=== PATIENT | female | born 1960 | race Caucasian/White ===

== ENCOUNTER 2017-10-18 06:56 | Day surgery (SDC) | payer BC ==
[~2017-10-18 06:56] MED LIST: Acetaminophen TAB* 325 MG PO PRN; Buffered Lidocaine 0.9% SYRIN* 5 ML/SYR SYRINGE INTRADERM ONE
[2017-10-18] MEDS ORDERED: Midazolam* 1 MG/ML 2 ML VIAL (2 MG) ONE (08:43)
[2017-10-18 09:29] VITALS: BP 114/60
--- NOTE | 2017-10-18 11:04 | OP ---
OPERATIVE NOTE: DATE OF OPERATION: 10/18/17 DATE OF : 58 SURGEON: Luis Perez M.D. PREOPERATIVE DIAGNOSIS: Cataract right eye. POSTOPERATIVE DIAGNOSIS: Cataract right eye. OPERATIVE PROCEDURE: Extracapsular cataract extraction with intraocular lens implant right eye. PROCEDURE: The patient was brought to the operating room after being given 1/2% Alcaine with epineph rine drops in the preoperative area. The eye was prepped and draped in the usual sterile fashion. S terile drape and eyelid speculum were placed. Again, topical 1/2% Alcaine with epinephrine was given . A paracentesis incision was made at the 9 o'clock position with the No.75 blade. Clear cornea inc ision 2.2 x 2.2-mm was created at the 12 o'clock position starting at the anterior limbus using the 2 .2-mm keratome. The anterior chamber was irrigated with 0.4 mL of 1% non-preservative intracameral l idocaine and filled with DisCoVisc. A capsulorrhexis was completed using the cystotome and the Utrat a forceps. Hydrodissection was performed with balanced salt solution. The lens nucleus was removed w ith the Phacoemulsification handpiece without incident. Cortex was removed with the irrigation-aspir ation handpiece. The capsular bag was re-inflated using DisCoVisc and an [id number] implant was inser karla with the shooter. The irrigation-aspiration handpiece was used to remove all residual DisCoVisc. The eye was refilled with balanced salt solution and the wound checked and found to be watertight. Topical Maxitrol drops were given. [id number]/[facility] #: [id number]
[2017-10-18] MEDS ORDERED: Ketorolac 0.5% OPHTH (NF) 0.5 % 5 ML BTL ONE (13:04)
[2017-10-18] MEDS ORDERED: Cyclopentolate 1% OPTH.SOL* 2 ML BTL ONE (13:04)
[2017-10-18] MEDS ORDERED: Povidone Iodine 5% OPTH* 30 ML BTL ONE (13:04)
[2017-10-18] MEDS ORDERED: acetaZOLAMIDE TAB* 250 MG ONE (13:04)
[2017-10-18] MEDS ORDERED: Lidocaine 1% MPF* 2 ML VIAL ONE (13:04)
[2017-10-18] MEDS ORDERED: Phenylephrine 2.5% OPTH.SOL* 2 ML BTL ONE (13:04)
[2017-10-18] MEDS ORDERED: Lidocaine 2% EPI 1:200000 MPF* 20 ML VIAL ONE (13:04)
[2017-10-18] MEDS ORDERED: Neomycin/Polymy/Dex OPTH.SUSP* MAXITROL 0.1% 5 ML ONE (13:04)
[2017-10-18] MEDS ORDERED: Proparacaine 0.5% OPHTH.SOL* 15 ML BTL ONE (13:04)
== END 2017-10-18 09:29 | disposition home or self-care (01) ==
LOC: OREAST 06:56
PROVIDERS: ATTEND Specialist
DX: H25.811 Combined forms of age-related cataract, right eye (principal); E03.9 Hypothyroidism, unspecified; F41.9 Anxiety disorder, unspecified; Z87.891 Personal history of nicotine dependence
CPT/HCPCS: A9270-GY; J2250; V2632

== ENCOUNTER 2017-10-25 06:39 | Day surgery (SDC) | payer BC ==
[2017-10-25] MEDS ORDERED: Midazolam* 1 MG/ML 2 ML VIAL (2 MG) ONE (08:00)
[2017-10-25 08:39] VITALS: BP 126/38
--- NOTE | 2017-10-25 08:56 | OP ---
DATE OF OPERATION: 10/25/17 [facility] DATE OF : 58 SURGEON: Luis Perez M.D. ANESTHESIA: Local with MAC. PREOPERATIVE DIAGNOSIS: Cataract, left eye. POSTOPERATIVE DIAGNOSIS: Cataract, left eye. OPERATIVE PROCEDURE: Extracapsular cataract extraction with intraocular lens implant, left eye. COMPLICATIONS: None. DESCRIPTION OF PROCEDURE: The patient was brought to the operating room after being given 1/2% Alcaine with epinephrine drops in the preoperative area. The eye was prepped and draped in the usual sterile fashion. Sterile drape and eyelid speculum were placed. Again, topical 1/2% Alcaine with epinephrine was given. A paracentesis incision was made at the 3 o'clock position with the No.75 blade. Clear cornea incision 2.2 x 2.2-mm was created at the 6 o'clock position starting at the anterior limbus using the 2.2-mm keratome. The anterior chamber was irrigated with 0.4 mL of 1% non-preservative intracameral lidocaine and filled with DisCoVisc. A capsulorrhexis was completed using the cystotome and the Utrata forceps. Hydrodissection was performed with balanced salt solution. The lens nucleus was removed with the Phacoemulsification handpiece without incident. Cortex was removed with the irrigation-aspiration handpiece. The capsular bag was re-inflated using DisCoVisc and an [id number] 27.5 implant was inserted with the shooter. The irrigation-aspiration handpiece was used to remove all residual DisCoVisc. The eye was refilled with balanced salt solution and the wound checked and found to be watertight. Topical Maxitrol drops were given. [id number]/[facility] #: [id number] [facility]
[2017-10-25] MEDS ORDERED: Ketorolac 0.5% OPHTH (NF) 0.5 % 5 ML BTL ONE (12:48)
[2017-10-25] MEDS ORDERED: acetaZOLAMIDE TAB* 250 MG ONE (12:48)
[2017-10-25] MEDS ORDERED: Cyclopentolate 1% OPTH.SOL* 2 ML BTL ONE (12:48)
[2017-10-25] MEDS ORDERED: Povidone Iodine 5% OPTH* 30 ML BTL ONE (12:48)
[2017-10-25] MEDS ORDERED: Lidocaine 1% MPF* 2 ML VIAL ONE (12:48)
[2017-10-25] MEDS ORDERED: Neomycin/Polymy/Dex OPTH.SUSP* MAXITROL 0.1% 5 ML ONE (12:48)
[2017-10-25] MEDS ORDERED: Phenylephrine 2.5% OPTH.SOL* 2 ML BTL ONE (12:48)
[2017-10-25] MEDS ORDERED: Lidocaine 2% EPI 1:200000 MPF* 20 ML VIAL ONE (12:48)
[2017-10-25] MEDS ORDERED: Proparacaine 0.5% OPHTH.SOL* 15 ML BTL ONE (12:48)
== END 2017-10-25 08:41 | disposition home or self-care (01) ==
LOC: OREAST 06:39
PROVIDERS: ATTEND Specialist
DX: H25.812 Combined forms of age-related cataract, left eye (principal); E03.9 Hypothyroidism, unspecified; Z87.891 Personal history of nicotine dependence; F41.9 Anxiety disorder, unspecified
CPT/HCPCS: A9270-GY; J2250; V2632

== ENCOUNTER 2018-07-06 11:14 | Inpatient (IN) | payer BC ==
--- NOTE | 2018-07-06 11:59 | ED ---
Psychiatric Complaint - HPI Summary HPI Summary: Patient is a 57 y/o F w/ c/o SI. Patient is very tearful and states she has thoughts of suicide with a plan, which is to run her car into an object. Patient notes long Hx of Sx but reports experiencing an exacerbation in the past five days. She states that she is hearing a voice and that the voice is telling her she is, "a bad person, a bad mother, and worthless". She denies Hx of SA and HI. Patient reports Hx of anxiety and depression. She states she has been prescribed medication for these conditions and she has been taking medication. Patient denies prior admission to psych facility. Hx of HTN and diabetes denied. On triage, pain is denied, nothing is noted to aggravate/ alleviate Sx. - History Of Current Complaint Chief Complaint: [facility]ental[facility] Time Seen by Provider: 07/06/18 11:28 Hx Obtained From: Patient Onset/Duration: Lasting Weeks - patient reports long Hx of Sx, Still Present, Worse Since - 5 days ago patient reports exacerbation of Sx Timing: Constant Severity Currently: None Character: Depressed Aggravating Factor(s): Nothing Alleviating Factor(s): Nothing Associated Signs And Symptoms: Positive: Hallucinating - hearing voice Has Suicidal: Reports: Thoughts, With A Plan - run car into an object. Denies: Has Prior Attempt(s) - NEGATIVE Has Homicidal: Denies: Thoughts - NEGATIVE - Allergies/Home Medications Allergies/Adverse Reactions: Allergies Allergy/AdvReac Type Severity Reaction Status Date / Time No Known Drug Allergies Allergy Leg Cramps Verified 07/07/18 17:06 Hayfever Allergy Intermediate Headaches; Uncoded 07/07/18 01:45 Nasal Congestion PMH/Surg Hx/FS Hx/Imm Hx Endocrine/Hematology History: Reports: Hx Thyroid Disease Denies: Hx Diabetes Cardiovascular History: Denies: Hx Hypertension Respiratory History: Reports: Hx Seasonal Allergies, Hx Sleep Apnea Denies: Hx Asthma, Hx Chronic Obstructive Pulmonary Disease (COPD) GI History: Denies: Hx Ulcer History: Reports: Hx Kidney Stones Musculoskeletal History: Reports: Hx Arthritis Denies: Hx Osteoporosis Sensory History: Reports: Hx Cataracts - both, Hx Contacts or Glasses, Hx Hearing Aid, Hx Hearing Problem Opthamlomology History: Reports: Hx Cataracts - both, Hx Contacts or Glasses Psychiatric History: Reports: Hx Anxiety, Hx Depression - Cancer History Hx Chemotherapy: No Hx Radiation Therapy: No - Surgical History Surgery Procedure, Year, and Place: tubal ligation; Tonsillectomy Hx Anesthesia Reactions: No Infectious Disease History: No Infectious Disease History: Denies: Hx Hepatitis, Hx Human Immunodeficiency Virus (HIV), History Other Infectious Disease, Traveled Outside the [place] in Last 30 Days - Family History Known Family History: Positive: Cardiac Disease - Social History Alcohol Use: None Substance Use Type: Reports: None Smoking Status (MU): Never Smoked Tobacco Amount Used/How Often: smoked for 20 years approx less than 1ppd Review of Systems Negative: Fever - on vitals, temp is 99.2 F Positive: Depressed - SI with plan, Other - NEGATIVE: prior SA, HI All Other Systems Reviewed And Are Negative: Yes Physical Exam - Summary Physical Exam Summary: GENERAL: Patient is a well developed and nourished female who is lying comfortable in the stretcher. Patient is not in any acute respiratory distress. HEAD AND FACE: Normocephalic EYES: PERRLA, EOMI x 2. EARS: Hearing grossly intact. MOUTH: Oropharynx within normal limits. NECK: Supple, trachea is midline, no adenopathy, no JVD, no carotid bruit. CHEST: Symmetric, no tenderness at palpation LUNGS: Clear to auscultation bilaterally. No wheezing or crackles. CVS: Regular rate and rhythm, S1 and S2 present, no murmurs or gallops appreciated. ABDOMEN: Soft, non-tender. Bowel sounds are normal. No abdominal abnormal pulsations. EXTREMITIES: Full ROM in all major joints, no edema, no cyanosis or clubbing. NEURO: Alert and oriented x 3. No acute neurological deficits. Speech is normal and follows commands. SKIN: Dry and warm PSYCH: patient is tearful, sad affect, + SI, - HI, + auditory hallucination Triage Information Reviewed: Yes Vital Signs On Initial Exam: Initial Vitals Temp Pulse Resp BP Pulse Ox 99.2 F 77 16 173/90 98 07/06/18 11:23 07/06/18 11:23 07/06/18 11:23 07/06/18 11:23 07/06/18 11:23 Vital Signs Reviewed: Yes Diagnostics - Vital Signs Vital Signs Temp Pulse Resp BP Pulse Ox 07/06/18 11:23 99.2 F 77 16 173/90 98 - Laboratory Result Diagrams: 07/06/18 11:47 07/06/18 11:47 Lab Statement: Any lab studies that have been ordered have been reviewed, and results considered in the medical decision making process. Re-Evaluation - Re-Evaluation First Eval Re-Evaluation Time: 12:20 Comment: Patient moved to flex unit. Course/Dx - Course Assessment/Plan: Patient is a 57 y/o F w/ c/o SI. Patient is very tearful and states she has thoughts of suicide with a plan, which is to run her car into an object. Patient notes long Hx of Sx but reports experiencing an exacerbation in the past five days. She states that she is hearing a voice and that the voice is telling her she is, "a bad person, a bad mother, and worthless". She denies Hx of SA and HI. Patient reports Hx of anxiety and depression. She states she has been prescribed medication for these conditions and she has been taking medication. Patient denies prior admission to psych facility. Physical exam findings show patient is tearful, has sad affect, + SI, - HI, + auditory hallucination. Patient was moved to flex unit at 1220. Patient's case was reviewed with Dr. Guy at 20:54, she will be admitted with diagnosis of depression. - Differential Dx/Clinical Impression Provider Diagnosis: Depression - Physician Notifications Discussed Care Of Patient With: Rocky Guy Time Discussed With Above Provider: 20:54 Instructed by Provider To: Other - Dr. Guy and Dr. Deal reviewed patient's case, she will be admitted to [facility] [place], accepted by Dr. Guy. Discharge - Sign-Out/Discharge Documenting (check all that apply): Patient Departure - admit - Discharge Plan Condition: Good Disposition: PSYCHIATRIC FACILITY[place] [place] - Billing Disposition and Condition Condition: GOOD Disposition: Psychiatric Facility [facility] [place] - Attestation Statements Document Initiated by Scribe: Yes Documenting Scribe: Diaz Ballesteros Provider For Whom Rom is Documenting (Include Credential): Yeyo Deal M.D. Scribe Attestation: Diaz Moss, scribed for Yeyo Deal M.D. on 07/07/18 at 8747. Scribe Documentation Reviewed: Yes Provider Attestation: The documentation as recorded by the Diaz carrasco accurately reflects the service I personally performed and the decisions made by me, Yeyo Deal M.D.
[2018-07-06 12:09] LABS: ABS Basophils 0.1 10^3/ul (0-0.2); ABS Eosinophils 0.3 10^3/ul (0-0.6); ABS Lymphocytes 2.6 10^3/ul (1.0-4.8); ABS Monocytes 0.4 10^3/ul (0-0.8); ABS Neutrophils 4.9 10^3/ul (1.5-7.7); ABS Nucleated RBC 0 10^3/ul; Eosinophil % 3.6 % (0-6); Hematocrit 42 % (35-47); Hemoglobin 14.6 g/dl (12.0-16.0); Lymphocyte % 31.3 % (25-47); Mean Corpuscular HGB Conc 35 g/dl (31-36); Mean Corpuscular Hemoglobin 33 pg (27-31); Mean Corpuscular Volume 94 fL (80-97); Mean Platelet Volume 9.6 um3 (7.4-10.4); Nucleated Red Blood Cells % 0.1; Platelet Count 293 10^3/ul (150-450); Red Blood Count 4.47 10^6/ul (4.00-5.40); Red Cell Distribution Width 13 % (10.5-15); White Blood Count 8.2 10^3/ul (3.5-10.8)
[2018-07-06 12:21] LABS: EGFR Non-African American 73.7 (>60)
[2018-07-06 12:33] LABS: Urine Appearance Clear; Urine Blood 2+ (Negative); Urine Color Yellow; Urine Ketones Negative (Negative); Urine Protein Negative (Negative); Urine Red Blood Cell 3+(>10/hpf) (Absent); Urine Specific Gravity 1.011 (1.010-1.030); Urine Urobilinogen Negative (Negative); Urine White Blood Cell Absent (Absent)
[2018-07-06] MEDS ORDERED: Acetaminophen TAB* 325 MG PO ONE (18:52)
[2018-07-07] MEDS ORDERED: Levothyroxine TAB* 100 MCG TAB PO SCH (06:00)
[2018-07-07] MEDS ORDERED: PARoxetine HCL TAB* 40 MG PO SCH (09:00)
[2018-07-07] MEDS ORDERED: Levothyroxine TAB* 100 MCG TAB ONE (10:04)
[2018-07-07] MEDS ORDERED: PARoxetine HCL TAB* 40 MG ONE (10:04)
[2018-07-07] MEDS: Calcium/Vitamin D TAB 250/125* TAB PO SCH (10:57)
[2018-07-07] MEDS ORDERED: hydrOXYzine HCL TAB* 50 MG PO PRN ×2 (11:40)
[2018-07-07] MEDS: Levothyroxine TAB* 100 MCG TAB PO SCH (12:12)
[2018-07-07] MEDS: PARoxetine HCL TAB* 40 MG PO SCH (12:12)
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
[2018-07-07] MEDS: QUEtiapine TAB* 25 MG PO SCH (21:43)
[2018-07-08] MEDS: Levothyroxine TAB* 100 MCG TAB PO SCH (07:59)
[2018-07-08] MEDS: PARoxetine HCL TAB* 40 MG PO SCH (08:00)
[2018-07-08] MEDS: Calcium/Vitamin D TAB 250/125* TAB PO SCH (08:00)
[2018-07-08] MEDS: QUEtiapine TAB* 25 MG PO SCH (21:36)
[2018-07-09] MEDS: Levothyroxine TAB* 100 MCG TAB PO SCH (07:40)
[2018-07-09] MEDS: Calcium/Vitamin D TAB 250/125* TAB PO SCH (09:17)
[2018-07-09] MEDS: PARoxetine HCL TAB* 40 MG PO SCH (09:18)
--- NOTE | 2018-07-09 11:36 | PN ---
MHU: Group Therapy Note - Service Type Service Type: [id number] Group Psychotherapy - Cognitive Behavioral Group Therapy ( CBT):Patient was attentive and participatory in CBT programming this morning, and remained in good behavioral control. Patient expressed positive insights regarding relevant treatment interventions and goals.
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
[2018-07-09] MEDS: QUEtiapine TAB* 25 MG PO SCH (21:29)
[2018-07-10] MEDS: Levothyroxine TAB* 100 MCG TAB PO SCH (09:07)
[2018-07-10] MEDS: PARoxetine HCL TAB* 40 MG PO SCH (09:07)
[2018-07-10] MEDS: Calcium/Vitamin D TAB 250/125* TAB PO SCH (09:08)
--- NOTE | 2018-07-10 17:53 | PN ---
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 She shows flashes of anger and emotion, but denies SI and feels like she 'll be ready for discharge tomorrow. "I really don't want to end my life. I' ve got so much to live for. I have a healthy daughter and 6 grandchildren that love me." She is quite active in groups and grateful for the help she's receiving here. "I should have done this years ago." Objective - Appearance Appearance: Well Developed/Nourished Dysmorphic Features: No Hygiene: Normal Grooming: Well Kept - Behavior Psychomotor Activities: Normal Exhibits Abnormal Movement: No - Attitude and Relatedness Attitude and Relatedness: Cooperative Eye Contact: Good - Speech Quality: Unpressured Latencies: Normal Quantity: Appropriate - Mood Patient's Decription of Mood: "Good" - Affect Observed Affect: Good Affect Consistent with: Euthymia - Thought Process Patient's Thought Process: Coherent Thought Content: No Passive Wish, No Suicidal Planning, No Homicidal Ideation, No Paranoid Ideation - Sensorium Experiencing Hallucinations: No, Sensorium is Clear Type of Hallucinations: Visual: No, Auditory: No, Command: No - Level of Consciousness Level of Consciousness: Alert Orientation: Yes Intact, Yes Orientated to Time, Yes Orientated to Place, Yes Orientated to Person - Impulse Control Impulse Control: Tenuous - Insight and Judgement Insight and Judgement: Fair - Group Participation Particating in Group Activities: Yes - Medication Management Medication Management Adherence: Yes Assessment - Assessment Merits Inpatient Hospitalization: Consolidate Improvements, Pending Safe DC Plan Inpatient DSM-V Dx: F33.2 Clinical Impression: 57 y.o. , white female with a history of depression who presents on a voluntary basis, accompanied by her , seeking inpatient care for depression and suicidal thoughts of driving her car off the road. Plan - Plan Treatment Plan: Name: DEWAYNE LAM Birthdate: 1960 [id number] The patient is being treated with a continuation of her paroxetine 40mg PO qday , as well as initiation of quetiapine 50mg PO qhs. She will need follow up in [facility]. Consider discharge on July 11. Continued Medication Management: Different Medication Medications: Current Medications Calcium/Vitamin D (Oscal D Tab 250/125*) 2 tab PO DAILY [facility] Last Admin: 07/10/18 09:08 Dose: 2 tab Hydroxyzine HCl (Atarax Tab*) 50 mg PO Q6H PRN PRN Reason: ANXIETY/AGITATION Levothyroxine Sodium (Synthroid Tab*) 100 mcg PO DAILY@0600 [facility] Last Admin: 07/10/18 09:07 Dose: 100 mcg Paroxetine HCl (Paxil Tab*) 40 mg PO DAILY [facility] Last Admin: 07/10/18 09:07 Dose: 40 mg Quetiapine Fumarate (Seroquel Tab*) 50 mg PO BEDTIME [facility] Last Admin: 07/09/18 21:29 Dose: 50 mg - Discharge Plan Discharge Plan: Outpatient Follow Up Outpatient Program: [facility]
[2018-07-10] MEDS: QUEtiapine TAB* 25 MG PO SCH (21:43)
[2018-07-11 08:19] VITALS: BP 125/69
[2018-07-11] MEDS: Levothyroxine TAB* 100 MCG TAB PO SCH (08:38)
[2018-07-11] MEDS: Calcium/Vitamin D TAB 250/125* TAB PO SCH (08:38)
[2018-07-11] MEDS: PARoxetine HCL TAB* 40 MG PO SCH (08:39)
--- NOTE | 2018-07-12 00:59 | DS ---
DISCHARGE SUMMARY: DATE OF ADMISSION: 07/06/18. DATE OF DISCHARGE: 07/11/18. DISCHARGE DIAGNOSES: Watkins I: Major depressive disorder, recurrent, severe without psychotic features. Cannabis use disorder. Watkins II: Deferred. CONDITION AT THE TIME OF DISCHARGE: Improved. The patient has been denying suicidal ideation for several days and she has been safe on all checks. She has been participating in milieu activities, going to groups, socializing with peers. She has been accepting visits by her and the 2 of them are getting along well. 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 She is appropriately requesting discharge, has done well here and we feel that she warrants treatment in a lesser stricter setting. Ana is accepting referrals to outpatient treatment in the community and she is tolerating her medications quite well. MENTAL STATUS EXAM: At the time of discharge, the patient is an aging white female who is clean and well groomed. She has dyed blonde hair. She is calm and cooperative. Speech has a normal rate, tone and volume. Mood is euthymic with a full affect. Thought process is linear and goal directed. Thought content is significant for her desire to be discharged from the hospital. She denies suicidal or homicidal ideations. She denies auditory or visual hallucinations. Insight and judgment are fair given her willingness to follow up in the community. Cognitively she is awake and alert with what would appear to be an average intellect. LABORATORY DATA: Comprehensive metabolic testing was performed on 07/10/18 revealing a hemoglobin A1c of 5.0, triglycerides 135, cholesterol 161, LDL cholesterol 90, HDL cholesterol 43.8. DISCHARGE INSTRUCTION TO THE PATIENT: As follows: A. Medications. The patient is taking paroxetine 40 mg p.o. daily. She takes Seroquel 50 mg p.o. q.h.s., levothyroxine 100 mcg p.o. q.a.m. She takes a calcium vitamin D supplement 1 tablet p.o. daily. B. Diet: Regular. C. Activities: As tolerated. The patient is a nonsmoker. There are no laboratory or diagnostic studies pending at the time of discharge. D. Followup care: The patient has an intake appointment on 07/13/18 at 12:30 p.m. at the [facility] in [place], [place]. E. Substance abuse followup: None applicable. HOSPITAL COURSE: Part A. Reason for admission: The patient is a 57-year-old , hearing impaired, white female with a history of depression and anger issues who arrived on a voluntary basis accompanied by her with complaints of severe depression and suicidal ideations. The patient stated in our emergency room that her mind was not healthy and she felt like this for years, but had not told any one. In fact, she admitted to a suicidal plan to wreck her car while driving. She was emotional and tearful throughout the evaluation. Her expressed that she was unsafe reporting that they have been trying to get her help in the outpatient setting, but nothing had materialized from that as of yet and he was supportive of her being admitted to the hospital. When I met with her, she claimed to have been depressed her whole life. She has experienced hearing loss since , which has sometimes resulted in communication problems. She stated, "Because I do not hear well, I tend to talk loud and people misunderstand me. They think I am angry when I am not." She complains that other people particularly at work have no patience with her and that they are often dishonest. She complains of chronic worry and stating that everything she does is not good enough for other people. 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 "They are playing a game with me and I don't appreciate it." She also complains that her is visually impaired and needs a lot of help which is stressful and she feels like she is not often there for him because she works such long hours. She states that she does not get along with her only sister and one of her sons is in [facility] with a drug problem and he has made hostile threatening statements to her to the effect that she feels unsafe with him being released from fci. Symptomatically, she complained of decreased sleep, anhedonia, feelings of gilt because of her son's issues. She also endorsed concentration problems and suicidal ideation. She did, however, deny energy problems, appetite disturbance, or psychomotor retardation. When asked about a plan for suicide, she stated that she thought repeatedly about wrecking her car into a tree. Part B. Psychiatric treatment rendered: The patient was admitted to the adult behavior health unit where she was placed on q.15 minutes checks for her own safety. Initially she seemed to be withdrawn in sticking to her room, but she emerged from this isolated behavior and started attending groups and started benefiting a great deal from these. Her observation status was lowered such that we were only checking her every 30 minutes and she could go outside and use the computer room. Often in clinical interactions, she would complain a great deal about coworkers and past experiences at [employer] and she feels that she would benefit from senior care at this time. She did request and received a work slip giving her 3 weeks off from work after discharge to put her affairs together for senior care. The patient's insight, affect, and demeanor all improved during this hospitalization. As previously mentioned, she was quite active in groups and was quite kind and available to other patients. Her angry affect dissipated and she became euthymic. Her depression was relieved. In addition to resuming her outpatient paroxetine 40 mg daily, we also added Seroquel 50 mg p.o. q.h.s. to augment antidepressive therapy. She tolerated these medications quite well. At this time, she is agreeable with followup at [facility] and was glad that she came in. She is quite grateful to staff and providers for the care she has received. Her is agreeable with the discharge plan and the patient is deemed safe to receive treatment in a lesser stricter setting. As reasons for wanting to continue to be alive, she states that she has 1 daughter and 6 grand kids whom she loves very much and wants to be part of their life. [id number]/[facility] #: [id number] [facility] SYSTEMShiva
== END 2018-07-11 14:40 | disposition home or self-care (01) | DRG 751 ==
LOC: ED 11:14 → BSU 18:38 → ED 20:00
PROVIDERS: ADMIT Psychiatry & Neurology Psychiatry; ATTEND Psychiatry & Neurology Psychiatry
PROC: GZHZZZZ Group Psychotherapy (ICD-10-PCS; principal; 2018-07-09)
DX: F33.2 Major depressive disorder, recurrent severe without psychotic features (principal); R45.851 Suicidal ideations; F41.9 Anxiety disorder, unspecified; I10 Essential (primary) hypertension; M19.90 Unspecified osteoarthritis, unspecified site; E03.9 Hypothyroidism, unspecified; G47.33 Obstructive sleep apnea (adult) (pediatric); H91.90 Unspecified hearing loss, unspecified ear; F12.90 Cannabis use, unspecified, uncomplicated; G47.30 Sleep apnea, unspecified; J30.2 Other seasonal allergic rhinitis; Z98.51 Tubal ligation status; Z82.49 Family history of ischemic heart disease and other diseases of the circulatory system; Z91.410 Personal history of adult physical and sexual abuse; Z72.89 Other problems related to lifestyle; Z87.891 Personal history of nicotine dependence; Z97.4 Presence of external hearing-aid; Z98.42 Cataract extraction status, left eye; Z98.41 Cataract extraction status, right eye; Z81.8 Family history of other mental and behavioral disorders
CPT/HCPCS: 36415; 80053; 80061; 80307; 80320; 80329; 81003; 81015; 83036; 84443; 84702; 85025; 90853; 99222; 99231; 99232; 99238; 99285; A9270-GY; G0480